=== PATIENT | male | born 2000 | race Caucasian/White ===

== ENCOUNTER 2022-11-10 04:23 | Day surgery (SDC) | payer OTHER ==
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
[2022-11-10] MEDS ORDERED: HYDROmorphone 1 MG/ML CARPUJECT IVP STA ×3 (04:34→08:36)
[2022-11-10] MEDS ORDERED: ONDANSETRON 4 MG/2 ML VIAL IVP STA (04:35)
[2022-11-10] MEDS ORDERED: ceFAZolin 2 GM in SODIUM CHLORIDE 0.9% 100ML 100 ML IV STA (04:37)
[2022-11-10 04:48] LABS: BASOPHILS % (AUTO) 0.5 %; EOSINOPHILS % (AUTO) 1.6 %; HCT - HEMATOCRIT 45.8 % (42.0-52.0); HGB - HEMOGLOBIN 15.8 g/dL (14.0-18.0); LYMPHOCYTES % (AUTO) 41.8 %; MEAN CORPUSCULAR HEMOGLOBIN 30.2 pg (27.0-31.0); MEAN CORPUSCULAR HGB CONC 34.5 g/dL (32.0-36.0); MEAN CORPUSCULAR VOLUME 87.4 fL (80.0-94.0); MEAN PLATELET VOLUME 10.1 fL (7.4-11.4); MONOCYTES % (AUTO) 8.4 %; NEUTROPHILS % (AUTO) 47.4 %; PLT - PLATELET COUNT 367 10^3/uL (130-450); RED BLOOD COUNT 5.24 10^6/uL (4.70-6.10); WHITE BLOOD COUNT 13.1 x10^3/uL (4.8-10.8)
[2022-11-10 04:51] LABS: BAND NEUTROPHILS % (MANUAL) 0 %
[2022-11-10 04:52] LABS: ALBUMIN 4.5 g/dL (3.2-5.5); ALBUMIN/GLOBULIN RATIO 1.3 (1.0-2.2); BILIRUBIN,TOTAL 0.6 mg/dL (0.2-1.0); CALCIUM 9.1 mg/dL (8.5-10.3); CREATININE 0.9 mg/dL (0.6-1.2)
[2022-11-10 05:03] LABS: ABNORMAL LYMPHS % (MANUAL) 1 %; DIFFERENTIAL COMMENT MANUAL DIFFERENTIAL; EOSINOPHILS # (MANUAL) 0.3 10^3/uL (0-0.7); LYMPHOCYTES # (MANUAL) 5.9 10^3/uL (1.5-3.5); LYMPHOCYTES % (MANUAL) 44 %; MONOCYTES # (MANUAL) 0.9 10^3/uL (0.0-1.0); PLATELET ESTIMATE, MANUAL NORMAL (130-450,000) (NORMAL); PLATELET MORPHOLOGY NORMAL APPEARANCE (NORMAL); RBC MORPHOLOGY (MULTIPLE) NORMAL APPEARANCE (NORMAL); WBC MORPHOLOGY (MULTIPLE) NORMAL APPEARANCE (NORMAL)
[2022-11-10] MEDS ORDERED: ceFAZolin 1 GM VIAL ONE ×2 (05:04→13:01)
[2022-11-10] MEDS ORDERED: iohexoL-300 100 ML VIAL ONE (05:32)
[2022-11-10] MEDS ORDERED: LIDOCAINE 1% 2 ML VIAL SUBQ STA (08:11)
[2022-11-10] MEDS ORDERED: LIDOCAINE-EPINEPH-TETRACAINE 3 ML SYRINGE TOP STA (08:13)
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
[2022-11-10] MEDS ORDERED: SODIUM CHLORIDE 0.9% 1,000 ML IV STA (09:51)
[2022-11-10] MEDS ORDERED: HYDROmorphone 1 MG/ML CARPUJECT IVP PRN (10:09)
[2022-11-10] MEDS ORDERED: iohexoL-300 100 ML VIAL IVP ONE (10:13)
--- NOTE | 2022-11-10 10:40 | ANESTHESIA ---
Pre-Anesthesia VS, & Labs - Diagnosis LLE laceration - Procedure I&D, closure LLE laceration Vital Signs: Temp Pulse Resp BP Pulse Ox O2 Flow Rate 36.4 C L 100 18 130/86 H 97 2 11/10/22 08:45 11/10/22 10:30 11/10/22 10:30 11/10/22 10:30 11/10/22 10:30 11/10/22 10:30 Height: 6 ft Weight (kg): 72.575 kg Body Mass Index: 21.7 BMI Classification: Normal - NPO >8 hours - Lab Results Current Lab Results: Laboratory Tests 11/10/22 04:30: Sodium 141, Potassium 4.0, Chloride 107, Carbon Dioxide 19 L, Anion Gap 15.0 H, BUN 14, Creatinine 0.9, Estimated GFR (MDRD) 107, Glucose 138 H, Calcium 9.1, Total Bilirubin 0.6, AST 37, ALT 55, Alkaline Phosphatase 61, To ovidio Protein 8.0, Albumin 4.5, Globulin 3.5, Albumin/Globulin Ratio 1.3, Lipase 26 11/10/22 04:30: WBC 13.1 H, RBC 5.24, Hgb 15.8, Hct 45.8, MCV 87.4, MCH 30.2, MCHC 34.5, RDW 12.0, Plt Count 367, MPV 10.1, Neut # (Auto) Not Reportable, Lymph # (Auto) Not Reportable, [place] # (Auto) Not Reportable, Eos # (Auto) Not Reportable, Baso # (Auto) Not Reportable, Absolute Nucleated RBC Not Reportable, Total Counted 100, Band Neuts % (Manual) 0, Abnorm Lymph % (Manual) 1, Nucleated RBC % Not Reportable, Neutrophils # (Manual) 6.0, Lymphocytes # (Manual) 5.9 H, Monocytes # (Manual) 0.9, Eosinophils # (Manual) 0.3, Basophils # (Manual) 0.0, Differential Comment MANUAL DIFFERENTIAL, WBC Morphology NORMAL APPEARANCE, Platelet Estimate NORMAL (130-450,000), Platelet Morphology NORMAL APPEARANCE, RBC Morph Micro Appear NORMAL APPEARANCE Fish Bones: 11/10/22 04:30 11/10/22 04:30 Home Medications and Allergies Home Medications: Ambulatory Orders No Known Home Medications 11/10/22 Active Medications Hydromorphone HCl (Hydromorphone 1 Mg/Ml Carpuject) 0.5 mg IVP Q2HR PRN PRN Reason: PAIN Last Admin: 11/10/22 10:33 Dose: 0.5 mg Sodium Chloride (Normal Saline 0.9%) 1,000 mls @ 150 mls/hr IV .Q6H40M STA Stop: 11/10/22 16:30 Last Admin: 11/10/22 09:59 Dose: 150 mls/hr No Known Home Medications 11/10/22 Allergies/Adverse Reactions: Allergies Allergy/AdvReac Type Severity Reaction Status Date / Time No Known Drug Allergies Allergy Verified 11/10/22 04:35 Anes History & Medical History - Anesthetic History Anesthesia Complications: reports: No previous complications Family history of Anesthesia Complications: Denies Family history of Malignant Hyperthermia: Denies - Medical History Cardiovascular: reports: None Pulmonary: reports: None Gastrointestinal: reports: None Urinary: reports: None Neuro: reports: None Musculoskeletal: reports: None Endocrine/Autoimmune: reports: None Blood Disorders: reports: None Skin: reports: None Smoking Status: Current every day smoker (circumcision) Exam General: Alert, Oriented x3, Cooperative Dental: WNL Mouth Openin Fingerbreadth Neck Mobility: Normal Mallampati classification: I Thyromental Distance: 4-6 cm Respiratory: Lungs clear Cardiovascular: Regular rate Plan Anesthesia Type: General, Total IV (TIVA vs GA) Consent for Procedure(s) Verified and Reviewed: Yes Code Status: Attempt Resuscitation ASA classification: 2-Mild systemic disease Is this case an emergency?: No
[2022-11-10] MEDS ORDERED: BUPIVACAINE 0.5% PF 30 ML VIAL ONE (11:16)
[2022-11-10] MEDS ORDERED: BUPIVACAINE 0.25% PF 30 ML VIAL ONE ×2 (11:16→13:06)
[2022-11-10] MEDS ORDERED: LIDOCAINE MPF 2%-EPI 1:200000 20 ML VIAL ONE (11:16)
[2022-11-10] MEDS ORDERED: PROPOFOL 200 MG/20 ML VIAL IVP ONE ×2 (12:08→13:11)
[2022-11-10] MEDS ORDERED: KETAMINE 500 MG/10 ML VIAL ONE (12:09)
[2022-11-10] MEDS ORDERED: MIDAZOLAM 2 MG/2 ML VIAL ONE (12:09)
[2022-11-10] MEDS ORDERED: fentaNYL 100 MCG/2 ML VIAL ONE ×2 (12:09→13:22)
[2022-11-10] MEDS ORDERED: SODIUM CHLORIDE 0.9% 10 ML VIAL IVP ONE (12:10)
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
[2022-11-10] MEDS ORDERED: BUPIVACAINE 0.5% PF 30 ML VIAL INFIL ONE (13:08)
[2022-11-10] MEDS ORDERED: ACETAMINOPHEN 1,000 MG/100 ML 1,000 MG/100 ML BAG IV ONE (13:11)
[2022-11-10] MEDS ORDERED: KETOROLAC 30 MG/ML VIAL ONE (14:16)
[2022-11-10] MEDS ORDERED: LACTATED RINGERS 1,000 ML IV ONE (14:34)
[2022-11-10] MEDS ORDERED: HYDROmorphone 0.5 MG/0.5 ML SYRINGE IVP PRN ×2 (14:38→14:47)
[2022-11-10] MEDS ORDERED: ONDANSETRON 4 MG/2 ML VIAL IVP PRN ×2 (14:38→14:47)
[2022-11-10] MEDS ORDERED: MORPHINE 2 MG/ML CARPUJECT IVP PRN (14:47)
[2022-11-10] MEDS ORDERED: METOCLOPRAMIDE 10 MG/2 ML VIAL IVP PRN (14:47)
[2022-11-10] MEDS ORDERED: ePHEDrine 50 MG/ML VIAL IVP PRN (14:47)
[2022-11-10] MEDS ORDERED: ATROPINE ABBOJECT 1 MG/10 ML SYRINGE IVP PRN (14:47)
[2022-11-10] MEDS ORDERED: fentaNYL 100 MCG/2 ML VIAL IVP PRN (14:47)
[2022-11-10] MEDS ORDERED: NALOXONE 0.4 MG/ML VIAL IVP PRN (14:47)
[2022-11-10] MEDS ORDERED: LACTATED RINGERS 1,000 ML IV SCH (15:00)
[2022-11-10] MEDS ORDERED: ceFAZolin 2 GM in SODIUM CHLORIDE 0.9% MINIBAG 100 ML IV SCH (15:00)
--- NOTE | 2022-11-10 15:16 | ANESTHESIA POST OP EVALUATION ---
Anesthesia Post Eval - Post Anesthesia Eval Vitals: Last Vital Signs Temp 37.0 C 11/10/22 15:06 Pulse 96 11/10/22 15:06 Resp 20 11/10/22 15:06 BP 130/59 L 11/10/22 15:06 Pulse Ox 96 11/10/22 15:06 O2 Flow Rate 2 11/10/22 11:30 CV Function Including HR & BP: Stable Pain Control: Satisfactory Nausea & Vomiting: Negative Mental Status: Baseline Respiratory Status: Airway Patent Hydration Status: Satisfactory Anesthesia Complications: None
[2022-11-10] MEDS: HYDROcod/ACETAM 5/325 MG TABLET PO PRN (17:26)
--- NOTE | 2022-11-10 17:42 | OPERATIVE REPORT ---
Operative Report - General Procedure Date: 11/10/22 Planned Procedure: irrigation and closure left lower leg laceration Pre-Op Diagnosis: left lower leg laceration Procedure Performed: intermediate repair and closure left lower leg 18 cm laceration Post Op Diagnosis: left lower leg laceration - Procedure Note Primary Surgeon: joanie mathis Anesthesia Technique: General LMA, Local Pathology: none Estimated Blood Loss (mL): 2 Drain/Tube Type: Leobardo drain Indications: wide open complex leg laceration with debris Findings: no deep injury/ viable tissue present Complications: none - Other Other Information/Narrative: The patient was properly identified brought to the operating room and placed in supine position. Laryngeal mask anesthesia was induced. Patient was given antibiotics shortly after admission to the emergency department. He was given additional dose of Ancef prior to surgery. His left lower leg was circumferentially prepped and draped in a sterile fashion. He had a complex laceration of his left lower leg measuring approximately 8 to 18 cm in total length. He had a full-thickness skin and subcutaneous flap down to intact musculature and fascia. His greater saphenous vein was completely free over this nearly 18 cm area. 2 branches were avulsed. These were tied. The wound was thoroughly irrigated with several liters of very dilute Betadine and saline. A significant amount of time was taken to assure all debris was removed. In general the area was quite clean with only a few small lisa of debris. The large skin flap was bruised however viable. A dependent 15 round Leobardo drain was placed through a separate stab incision. The laceration was closed with buried interrupted 3-0 Vicryl suture followed by a vertical mattress 3-0 nylon suture. The drain was secured with a 3-0 nylon. Dressing was applied. Tolerated the procedure well was awakened and brought to recovery in good condition.
[2022-11-11] MEDS: ceFAZolin 2 GM in SODIUM CHLORIDE 0.9% MINIBAG 100 ML IV SCH ×2 (01:38→10:01)
[2022-11-11] MEDS: HYDROcod/ACETAM 5/325 MG TABLET PO PRN ×2 (05:06→10:59)
[2022-11-11 08:07] VITALS: BP 115/66
== END 2022-11-11 11:05 | disposition home or self-care (01) ==
LOC: ED 04:23 → SDS 12:10 → ED 12:41 → MS2 14:47 → SDS 11-11 11:05
PROVIDERS: ATTEND Surgery
PROC: 0KQT0ZZ Repair Left Lower Leg Muscle, Open Approach (ICD-10-PCS; principal; 2022-11-10 12:00)
DX: S81.822A Laceration with foreign body, left lower leg, initial encounter (principal); V29.99XA Rider (driver) (passenger) of other motorcycle injured in unspecified traffic accident, initial encounter; Y92.481 Parking lot as the place of occurrence of the external cause; Z20.822 Contact with and (suspected) exposure to COVID-19; S01.81XA Laceration without foreign body of other part of head, initial encounter; M25.552 Pain in left hip; F17.200 Nicotine dependence, unspecified, uncomplicated
CPT/HCPCS: 12011; 12035; 36415; 70450; 71260; 72125; 73590; 74177; 80053; 83690; 85025; 87635; 96365; 96375; 96376; 99283; 99285; A9270; J0131; J1170; J7120; Q9967